=== PATIENT | female | born 2000 | race African-American/Black ===

== ENCOUNTER 2018-07-14 02:29 | Emergency (ER) | payer OTHER ==
[~2018-07-14] VITALS: Ht 165.1 cm; Wt 70.8 kg
[2018-07-14 02:36] VITALS: Ht 165.1 cm; Wt 70.8 kg
[2018-07-14 04:46] VITALS: BP 118/69
== END 2018-07-14 04:35 | disposition home or self-care (01) ==
LOC: ED 02:29
DX: N86 Erosion and ectropion of cervix uteri (principal); Z90.89 Acquired absence of other organs
CPT/HCPCS: 87491; 87591